=== PATIENT | male | born 1965 | race Caucasian/White ===

== ENCOUNTER 2017-01-23 13:22 | Day surgery (SDC) | payer BC ==
[~2017-01-23] VITALS: Ht 182.9 cm; Wt 83.0 kg
--- NOTE | 2017-01-23 15:39 | Operative Note ---
Procedure/Operative Record Date of Procedure: 01/23/17 Referring physician: Dr. Lindsay Pre-op diagnosis: Foreign body, LEFT index finger Post-op diagnosis: Same Procedure performed: Foreign body removal, LEFT index finger Surgeon: Jefferson Rowe Anesthesia: [place] block anesthetic Indications: The patient is a 52-year-old gentleman who was working with a treated fencepost and incurred a splinter injury to his LEFT nondominant index finger along the ulnar and volar aspect mid phalanx. This was treated at home and when it failed to respond, the patient presented to his family physician and was referred to orthopedics. The puncture site is evident but the splinter itself is not seen. It is palpable. The patient has early signs suggestive of a developing flexor tenosynovitis. The digit is enlarged and swollen but not fusiform. He is tender albeit very mildly along the flexor tendon proximally. Surgical removal of the splinter is indicated as it is buried and cannot be accessed in the clinic. Findings: Intraoperatively, we noted the rather large fragment of wood approximately 8-10 mm in length running transversely from the entry point directly down to the flexor tendon sheath. There was some fluid suggestive of early purulent fluid. Mild debris from the wood was also evident and irrigated out. Description of procedure: The patient was taken to the operating room and given a [place] block. He was prepped and draped with chlorhexidine. C-arm fluoroscopy was utilized to see if we could identify the piece of wood radiographically. We could not and proceed with an open exploration. A Kathie's incision was drawn out and a small segment of this utilized to access the splinter. We incised through the skin only. We reflected a small flap, identified the wood splinter, and removed it with forceps. The tract was noted and held open and both aerobic and anaerobic cultures taken. We then submitted the splinter itself for culture as it apparently had a biofilm on it. We then irrigated using approximately 200 mL of normal saline using a syringe with a 20-gauge IV catheter attached. We irrigated until an absolutely clear return was noted and no additional debris removed. We then loosely closed the incision aspect of the wound using three separate 4-0 nylon sutures. Dressings were applied and the patient awakened and transported to the recovery room in good condition EBL (ml): 0 Specimens: For culture and sensitivity at 0845
[2017-01-23 16:18] VITALS: BP 123/93
== END 2017-01-23 15:38 | disposition home or self-care (01) ==
LOC: SDC 13:22
PROC: 0HCGXZZ Extirpation of Matter from Left Hand Skin, External Approach (ICD-10-PCS; principal; 2017-01-23)
DX: S60.451A Superficial foreign body of left index finger, initial encounter (principal); Y92.79 Other farm location as the place of occurrence of the external cause

== ENCOUNTER → 2017-03-06 | Outpatient (CLI) | payer BC ==
[~2017-03-06] MED LIST: Docusate Sodiu100 MG PO; LORTAB 500 MG-71 TAB PO; MEDROL 4MG. DOSE4 MG PO; MIRALAX17 GM/PACK PO; MS CONTIN 30MG.30 MG PO; PERCOCET 5/3251 EACH PO; SENNA DOCUSATE1 TAB; TORADOL10 M1 PO; VALIUM 10MG TAB10 MG PO
[2017-03-06 11:01] LABS: BUN 16 mg/dL (7-18); GFR (ESTIMATED) 70 ML/MIN (>60)
== END ==
LOC: LAB 08:54
PROVIDERS: Nurse Practitioner Family
DX: Z00.00 Encounter for general adult medical examination without abnormal findings (principal)